=== PATIENT | female | born 1965 | race Two or more races ===

== ENCOUNTER 2025-03-12 22:43 | Emergency (ER) | payer OTHER, MEDICAID ==
[~2025-03-12] VITALS: Ht 152.4 cm; Wt 65.9 kg
--- NOTE | 2025-03-12 23:54 | DVH ---
COMPUTERIZED TOMOGRAPHY ABDOMEN AND PELVIS WITHOUT CONTRAST REASON FOR EXAM: abd pain n/v COMPARISON: None TECHNIQUE: Spiral scans were acquired from the diaphragm to the symphysis pubis without intravenous contrast administration. 2-D coronal and sagittal reformatted images were provided. Radiation optimization: All CT scans at this facility use at least one of these dose optimization techniques: Automated exposure control mA and/or kV adjustment per patient size (includes targeted exams where dose is matched to clinical indication) or iterative reconstruction. RADIATION DOSE: CTDI: 7 mGy DLP: 409 mGy-cm FINDINGS: The visualized lung bases are grossly clear. There is no pleural effusion. There is no pericardial effusion. There is a moderate-sized hiatal hernia. The spleen is not enlarged. The liver is borderline enlarged. The liver parenchyma is diffusely hypoattenuating. No focal liver lesion is identified. No calcified gallstone is identified. Evaluation of the abdominal organs is suboptimal in the absence of intravenous contrast. Unenhanced appearance of the pancreas is grossly unremarkable. The adrenal glands appear grossly normal. The kidneys are similar in size. There is no hydronephrosis of either kidney. There is no abdominal aortic aneurysm. No pathologic lymphadenopathy is identified by size criteria. No free fluid is identified in the abdomen or pelvis. The urinary bladder is decompressed and is not well evaluated on the current study. The uterus and ovaries are within normal limits for age. The colonic stool burden is small. The appendix is normal. There is no Pathologic distention of the small bowel. There are phleboliths in the pelvis. There is old healed fracture of the left 9th, 10th, and 11th ribs. No acute osseous abnormality is identified. IMPRESSION: Borderline hepatomegaly. The liver is diffusely hypoattenuating which may be secondary to steatosis or another diffuse hepatic process. Correlate clinically and with liver function tests.
[2025-03-12 23:58] LABS: Hematocrit 42.9 % (36.0-46.0); Hemoglobin 14.6 g/dL (12.2-16.2); Mean Corpuscular Hemoglobin 33.6 pg (28.0-32.0); Mean Corpuscular Volume 98.9 fL (80.0-100.0); Nucleated Red Blood Cells % 0.1 %
[2025-03-13 00:08] LABS: Alanine Aminotransferase 40 U/L (7-40); Albumin 4.3 g/dL (3.2-4.8); Anion Gap 15 (5-15); BUN/Creatinine Ratio 7.6 (10.0-20.0); Calcium 9.6 mg/dL (8.7-10.4); Carbon Dioxide 24 mmol/L (20-31); Chloride 102 mmol/L (98-107); Glucose 104 mg/dL (74-106); Lipase 26 U/L (12-53); Sodium 141 mmol/L (136-145); Total Protein 8.0 g/dL (5.7-8.2)
[2025-03-13 00:09] LABS: Bilirubin, Total 0.4 mg/dL (0.2-1.0)
[2025-03-13 00:14] LABS: Lactic Acid w/Reflex 2.4 mmol/L (0.4-2.0)
[2025-03-13 00:18] LABS: Alkaline Phosphatase 143 U/L (46-116); Blood Urea Nitrogen 7 mg/dL (9-23); Potassium 3.1 mmol/L (3.5-5.1)
--- NOTE | 2025-03-13 00:39 | ED.PDOC ---
GI ASSESSMENT HPI Comments 59-year-old female presents with chief complaint of nonradiating, umbilical abdominal pain, nausea, vomiting, blurry vision, and dizziness. Patient endorses on sudden, unprovoked, and atraumatic onset of symptoms, earlier, today. Pain is intermittent. She reports some vomiting 6 times, already. She denies having any bloody or bilious vomitus, diarrhea, constipation, urinary symptoms, or further acute symptoms. Past Medical History: Hypertension, history of aspirin use Past Surgical History: Denies EPHRIAM: ONE DAY HISTORY OF PERIUMBILICAL ABDOMINAL PAIN WITH NAUSEA AND VOMITING NONBILIOUS NONBLOODY HPI: Poor Historian. Past Medical History: Past Surgical History: REVIEW OF SYSTEMS: CONSTITUTIONAL: Denies acute: fever, diaphoresis, chills, HEAD: Denies acute: headache, photophobia Eyes: Denies acute: Double vision, vision loss, eye pain, eye discharge. EARS: Denies acute: tinnitus, hearing loss, ear discharge, ear pain, THROAT: Denies acute: sore throat, swelling, difficulty swallowing , pain with swallowing, change in voice. NECK: Denies acute: neck pain, neck swelling, stiff neck. HEART: Denies acute : chest pain, palpitations, LUNGS: Denies acute: SOB, wheezing, cough, hemoptysis ABDOMEN: Denies acute: diarrhea, melena , hematemesis, hematochezia SKIN: Denies acute: rash, redness, lesions, itchiness. EXTREMITIES: Denies acute: calf pain, numbness, tingling, weakness, denies pain in extremity. Denies acute: Low back pain. Neuro: Denies acute: focal neurological deficit, motor or sensory focal neurological deficit, tremors, seizure like activity, confusion, dizziness, change in mental status, loss of bowel or bladder function, cauda equina like symptoms. : Denies acute: dysuria, hematuria, flank pain, increase in urinary frequency. PSYCH: Denies acute: hallucination, suicidal ideation, homicidal ideation. FEMALE: Denies acute: abnormal vaginal bleeding, foul odor, unusual discharge. PHYSICAL EXAM: General: ----mild----acute distress, awake and alert. Head: normocephalic, atraumatic. No raccoon's eyes, no masterson sign. Neck: supple, trachea is midline, no swelling. Throat: Normal phonation. Eyes:, no erythema, no purulent discharge, no proptosis, no icterus. Heart: regular rate, regular rhythm, no significant murmur appreciated. Lungs: no apparent respiratory distress, Able to speak in full sentences. No wheezing, no rhonchi, no crackles. No stridors Clear to auscultation bilaterally. Abdomen: Periumbilical tender to palpation, non distended, soft, no guarding, no rebound, + bowel sounds. Neuro: Awake, Alert, oriented to name, self, situation, follows commands GCS=15. Speech is normal. Skin: no petechia, no purpura, no cyanosis, non-pale, not jaundice. Lower extremities: --no - Pitting edema no deformity, no focal swelling, no calf TTP. Makes eye contact. moves all four extremities. Face: no apparent facial droop. ED COURSE: DISCLAIMER: This medical document was created using an electronic medical record system with voice recognition software and computerized dictation system. Although this document has been carefully reviewed, there might still be some phonetic and typographical errors. Occasional wrong-word or "sound-alike" substitutions may have occurred due to the inherent limitations of voice recognition software. These areas are purely typographical due to imperfections of the software programs and do not reflect any compromise in the patient's medical care. Please read the chart carefully and recognize, using context, where these substitutions have occurred. Chief Complaint: Abdominal Pain Time Seen by MD: 00:20 Reviewed Notes: Allergies Allergies: Coded Allergies: NO KNOWN ALLERGIES (Unverified , 03/13/25) Information Source: Patient Mode of Arrival: EMS Was a procedure done? Was a procedure done?: No GI differential Dx Differential Diagnosis: Other (DDX include Diverticulitis, colitis, gastroenteritis, acute abdomen, SBO, enteritis, constipation, volvulus, appendicitis, Gallbladder disease, choledocolithiasis, ascending cholangitis, pancreatitis, intraAbdominal mass/neoplasm, hepatitis, UTI, pylonephritis, kidney stone, aneurysm, dissection, Inflammatory bowel disease, gastroparesis, ischemic bowel,,,,,,Food poisoning, bacterial/parasitic/viral etiology, trauma, diabetes DKA,ovarian torsion, ovarian cyst/mass, tubo-ovarian abscess, PID, STD.) X-Ray, Labs, Meds, VS Vital Signs Date Time Temp Pulse Resp B/P (MAP) Pulse Ox O2 Delivery O2 Flow Rate FiO2 03/13/25 04:26 98.9 70 18 148/97 (114) 97 98.9 03/13/25 02:41 98.9 69 16 148/131 (137) 99 98.9 03/12/25 22:53 98.7 66 18 174/87 97 98.7 Lab Test 03/13/25 01:45 03/12/25 23:34 03/12/25 22:58 Range/Units Lactic Acid Level 1.5 2.4 *H 0.4-2.0 mmol/L White Blood Count 5.4 4.4-10.8 10^3/uL Red Blood Count 4.34 4.0-5.20 10^6/uL Hemoglobin 14.6 12.2-16.2 g/dL Hematocrit 42.9 36.0-46.0 % Mean Corpuscular Volume 98.9 80.0-100.0 fL Mean Corpuscular Hemoglobin 33.6 H 28.0-32.0 pg Mean Corpuscular Hemoglobin Concent 34.0 32.0-36.0 g/dL Red Cell Distribution Width 13.8 11.8-14.3 % Platelet Count 238 140-450 10^3/uL Mean Platelet Volume 8.2 6.9-10.8 fL Neutrophils (%) (Auto) 73.7 37.0-80.0 % Lymphocytes (%) (Auto) 18.8 10.0-50.0 % Monocytes (%) (Auto) 5.2 0.0-12.0 % Eosinophils (%) (Auto) 1.3 0.0-7.0 % Basophils (%) (Auto) 1.0 0.0-2.0 % Neutrophils # (Auto) 4.0 1.6-8.6 10 ^3/uL Lymphocytes # (Auto) 1.0 0.4-5.4 10 ^3/uL Monocytes # (Auto) 0.3 0-1.3 10 ^3/uL Eosinophils # (Auto) 0.1 0-0.8 10 ^3/uL Basophils # (Auto) 0.1 0-0.2 10 ^3/uL Nucleated Red Blood Cells 0.1 % Sodium Level 141 136-145 mmol/L Potassium Level 3.1 L 3.5-5.1 mmol/L Chloride Level 102 98-107 mmol/L Carbon Dioxide Level 24 20-31 mmol/L Anion Gap 15 5-15 Blood Urea Nitrogen 7 L 9-23 mg/dL Creatinine 0.92 0.550-1.02 mg/dL Glomerular Filtration Rate Calc 72 >90 mL/min BUN/Creatinine Ratio 7.6 L 10.0-20.0 Serum Glucose 104 74-106 mg/dL Calcium Level 9.6 8.7-10.4 mg/dL Total Bilirubin 0.4 0.2-1.0 mg/dL Aspartate Amino Transferase (AST) 52 H 13-40 U/L Alanine Aminotransferase (ALT) 40 7-40 U/L Alkaline Phosphatase 143 H 46-116 U/L Troponin I High Sensitivity 8 </=34 ng/L Total Protein 8.0 5.7-8.2 g/dL Albumin 4.3 3.2-4.8 g/dL Lipase 26 12-53 U/L Plasma/Serum Blood Alcohol 65.6 H <10 mg/dL Urine Color Yellow Yellow Urine Clarity Clear Clear Urine pH 5.5 5.0-9.0 Urine Specific [place] 1.032 1.001-1.035 Urine Protein 1+ H Negative Urine Ketones 1+ H Negative Urine Blood Negative Negative /uL Urine Nitrite Negative Negative Urine Bilirubin Negative Negative Urine Urobilinogen 3 H Negative mg/dL Urine Leukocyte Esterase Negative Negative /uL Urine RBC None seen 0 - 4 /hpf Urine Microscopic WBC < 1 0-5 /HPF Urine Squamous Epithelial Cells Few <5 /hpf Urine Bacteria None seen None Seen /hpf Urine Mucus Few None Seen Urine Glucose Normal Normal mg/dL Current Medications Medications (Trade) Dose Ordered Sig/Haley Route Start Time Stop Time Status Last Admin Sodium Chloride 1,000 ml @ 1,000 mls/hr Q1H ONCE IV 03/13/25 00:30 03/13/25 03:57 DC 03/13/25 04:39 Ondansetron HCl (Zofran) 8 mg ONCE ONCE IV 03/13/25 00:30 03/13/25 03:57 DC 03/13/25 04:39 Potassium Chloride (Klor-Con Tablet) 40 meq ONCE ONCE PO 03/13/25 00:30 03/13/25 03:57 DC 03/13/25 04:38 Sucralfate (Carafate Tab) 1 gm ONCE ONCE PO 03/13/25 02:30 03/13/25 03:57 DC 03/13/25 04:38 Pantoprazole Sodium (Protonix Tablet) 40 mg ONCE ONCE PO 03/13/25 02:30 03/13/25 03:57 DC 03/13/25 04:38 Lidocaine HCl (Xylocaine 2% Viscous) 10 ml ONCE ONCE PO 03/13/25 02:30 03/13/25 03:57 DC 03/13/25 04:38 [place] [address] Ph: [phone] DIAGNOSTIC IMAGING Diagnostic Imaging Report : [id number] Signed PATIENT: BK CULP ACCT: [id number] UNIT: [id number] : 1965 LOC: ER ROOM / BED: / AGE / SEX: 59 / F ADM STATUS: REG ER SERVICE 57 ORDERING PHYSICIAN: DAVI ADRIAN DO PROCEDURE(s): ABPL - CT AB PEL WO CON-NO ORAL OR IV REASON: abd pain n/v ORDER NUMBER(s): [id number], ACCESSION NUMBER(s): [id number] COMPUTERIZED TOMOGRAPHY ABDOMEN AND PELVIS WITHOUT CONTRAST REASON FOR EXAM: abd pain n/v COMPARISON: None TECHNIQUE: Spiral scans were acquired from the diaphragm to the symphysis pubis without intravenous contrast administration. 2-D coronal and sagittal reformatted images were provided. Radiation optimization: All CT scans at this facility use at least one of these dose optimization techniques: Automated exposure control mA and/or kV adjustment per patient size (includes targeted exams where dose is matched to clinical indication) or iterative reconstruction. RADIATION DOSE: CTDI: 7 mGy DLP: 409 mGy-cm FINDINGS: The visualized lung bases are grossly clear. There is no pleural effusion. There is no pericardial effusion. There is a moderate-sized hiatal hernia. The spleen is not enlarged. The liver is borderline enlarged. The liver parenchyma is diffusely hypoattenuating. No focal liver lesion is identified. No calcified gallstone is identified. Evaluation of the abdominal organs is suboptimal in the absence of intravenous contrast. Unenhanced appearance of the pancreas is grossly unremarkable. The adrenal glands appear grossly normal. The kidneys are similar in size. There is no hydronephrosis of either kidney. There is no abdominal aortic aneurysm. No pathologic lymphadenopathy is identifi ed by size criteria. No free fluid is identified in the abdomen or pelvis. The urinary bladder is decompressed and is not well evaluated on the current study. The uterus and ovaries are within normal limits for age. The colonic stool burden is small. The appendix is normal. There is no Pathologic distention of the small bowel. There are phleboliths in the pelvis. There is old healed fracture of the left 9th, 10th, and 11th ribs. No acute osseous abnormality is identified. IMPRESSION: Borderline hepatomegaly. The liver is diffusely hypoattenuating which may be secondary to steatosis or another diffuse hepatic process. Correlate clinically and with liver function tests. ATED BY: DEMARCUS BUSH MD DICTATED DATE/TIME: 03/12/252351 SIGNED BY: DEMARCUS BUSH MD SIGNED DATE/TIME: 03/12/252351 CC: Time of 1ST Reevaluation: 00:20 Reevaluation 1ST: Unchanged Patient Education/Counseling: Diagnosis, Treatment Family Education/Counseling: No Family Present Comments MDM: patient presented with the above HPI.----abdominal pain GI symptoms--workup was initiated. patient was found with the above mentioned diagnosis. the following medications were ordered: please refer to order lists of meds and tests obtained by myself Dr. Adrian. Patient ED course and VS have been stabilized. Patient has been reassessed in the ED and remained in a stable condition. Pertinent incidental findings were discussed with the patient and/or family. Patient/family voices understanding and is agreeable with plan. Patient has been observed in the ED adequate length of time to insure improveme nt/stability. Escalation of care considered: Consideration of escalation to observation or admission Patient was DISCHARGED home in a stable condition. All the reports of any imaging studies that were ordered by myself were reviewed by myself. SEPSIS Sepsis Screen Date sepsis recognized/suspect: Mar 12, 2025 Time Sepsis recognized/suspect: 2250 Recent Procedure: No On Antibiotic Therapy: No Respiratory Rate >20: No Heart Rate >90: No Temp<36 C (96.8 F) or >38.3 C: No SBP <90 or MAP <65 mmHG: No New Acute Mental Status Change: No Is the patient on CPAP, BIPAP,: No Physician Orders Solid Waste Analyst (03/12/25 ) Electrocardigram (03/12/25 22:58) Ct Ab Pel Wo Con-No Oral Or Iv (03/12/25 22:58) Vital Signs Date Time Temp Pulse Resp B/P (MAP) Pulse Ox O2 Delivery O2 Flow Rate FiO2 03/13/25 04:26 98.9 70 18 148/97 (114) 97 98.9 03/13/25 02:41 98.9 69 16 148/131 (137) 99 98.9 03/12/25 22:53 98.7 66 18 174/87 97 98.7 Laboratory Tests Test 03/12/25 23:34 03/13/25 01:45 Lactic Acid Level 2.4 mmol/L (0.4-2.0) *H 1.5 mmol/L (0.4-2.0) White Blood Count 5.4 10^3/uL (4.4-10.8) Medications Medications Dose Ordered Sig/Haley Route Start Time Stop Time Status Last Admin Dose Admin Lidocaine HCl 10 ml ONCE ONCE PO 03/13/25 02:30 03/13/25 03:57 DC 03/13/25 04:38 Ondansetron HCl 8 mg ONCE ONCE IV 03/13/25 00:30 03/13/25 03:57 DC 03/13/25 04:39 Pantoprazole Sodium 40 mg ONCE ONCE PO 03/13/25 02:30 03/13/25 03:57 DC 03/13/25 04:38 Potassium Chloride 40 meq ONCE ONCE PO 03/13/25 00:30 03/13/25 03:57 DC 03/13/25 04:38 Sodium Chloride 1,000 ml @ 1,000 mls/hr Q1H ONCE IV 03/13/25 00:30 03/13/25 03:57 DC 03/13/25 04:39 Sucralfate 1 gm ONCE ONCE PO 03/13/25 02:30 03/13/25 03:57 DC 03/13/25 04:38 Departure 1 Departure Time of Disposition: 02:17 Impression: Primary Impression: Alcohol abuse Additional Impressions: Abdominal pain Nausea and vomiting Hypokalemia Disposition: 01 HOME / SELF CARE / HOMELESS Condition: Stable Additional Instructions: Additional instructions: Please read all instructions provided in this packet carefully. You MUST follow-up with your primary care/family doctor in 1 to 2 days. If you are unable to see your primary care/family doctor, please return to our emergency room for re-assessment and re-evaluation in 1 to 2 days. Return to the emergency room here in our facility or to the nearest ER [facility] if your symptoms change or worsen. CONSULTATIONS: you MUST Follow-up for consultation as soon as possible with: -gastroenterology in 1-2 days. Please call for appointment. You MUST call the consultants office yourself to make an appointment. You may need to arrange that through your insurance and/or your primary/family doctor. If you are unable to see the management consultant in 1 to 2 days, you must return to our emergency room (or any other ER of your choice) for re-assessment and re- evaluation. Adequate fluid hydration. Although you have been discharged from the Emergency Department, this does not mean that you have a "clean bill of health". No definitive diagnosis for your symptoms has been made today. It is possible that you are in the process of developing a serious illness. This is why you must return to the ED without fail if any new or worsening symptoms develop. Avoid fatty greasy spicy food. Avoid caffeinated products. Avoid NSAIDs. Av oid alcohol. Below is a copy of your radiological report for follow up: [place] [address] Ph: [phone] DIAGNOSTIC IMAGING Diagnostic Imaging Report : [id number] Signed PATIENT: BK CULP ACCT: [id number] UNIT: [id number] : 1965 LOC: ER ROOM / BED: / AGE / SEX: 59 / F ADM STATUS: REG ER SERVICE [id number] ORDERING PHYSICIAN: DAVI ADRIAN DO PROCEDURE(s): ABPL - CT AB PEL WO CON-NO ORAL OR IV REASON: abd pain n/v ORDER NUMBER(s): [id number], ACCESSION NUMBER(s): [id number] COMPUTERIZED TOMOGRAPHY ABDOMEN AND PELVIS WITHOUT CONTRAST REASON FOR EXAM: abd pain n/v COMPARISON: None TECHNIQUE: Spiral scans were acquired from the diaphragm to the symphysis pubis without intravenous contrast administration. 2-D coronal and sagittal reformatted images were provided. Radiation optimization: All CT scans at this facility use at least one of these dose optimization techniques: Automated exposure control mA and/or kV adjustment per patient size (includes targeted exams where dose is matched to clinical indication) or iterative reconstruction. RADIATION DOSE: CTDI: 7 mGy DLP: 409 mGy-cm FINDINGS: The visualized lung bases are grossly clear. There is no pleural effusion. There is no pericardial effusion. There is a moderate-sized hiatal hernia. The spleen is not enlarged. The liver is borderline enlarged. The liver parenchyma is diffusely hypoattenuating. No focal liver lesion is identified. No calcified gallstone is identified. Evaluation of the abdominal organs is suboptimal in the absence of intravenous contrast. Unenhanced appearance of the pancreas is grossly unremarkable. The adrenal glands appear grossly normal. The kidneys are similar in size. There is no hydronephrosis of either kidney. There is no abdominal aortic aneurysm. No pathologic lymphadenopathy is identified by size criteria. No free fluid is identified in the abdomen or pelvis. The urinary bladder is decompressed and is not well evaluated on the current study. The uterus and ovaries are within normal limits for age. The colonic stool burden is small. The appendix is normal. There is no Pathologic distention of the small bowel. There are phleboliths in the pelvis. There is old healed fracture of the left 9th, 10th, and 11th ribs. No acute osseous abnormality is identified. IMPRESSION: Borderline hepatomegaly. The liver is diffusely hypoattenuating which may be secondary to steatosis or another diffuse hepatic process. Correlate clinically and with liver function tests. ATED BY: DEMARCUS BUSH MD DICTATED DATE/TIME: 03/12/252351 SIGNED BY: DEMARCUS BUSH MD SIGNED DATE/TIME: 03/12/252351 CC: Discharged With: Self Critical Care Note Critical Care Time?: No I personally scribed for DAVI ADRIAN DO ([email or web address]) on 03/13/25 at 00:39. Electronically submitted by Nahum Samuel ([email or web address]). I personally scribed for DAVI ADRIAN DO ([email or web address]) on 03/13/25 at 02:19. Electronically submitted by Nahum Samuel [email or web address]). DAVI ADRIAN DO Mar 13, 2025 00:39
[2025-03-13 02:42] LABS: Urine Protein, UAD 1+ (Negative)
[2025-03-13 04:26] VITALS: BP 148/97; PULSE 70; RESP 18; TEMP 98.9; O2SAT 97
[2025-03-13] MEDS: SUCRALFATE 1 GM TAB PO ONE (04:38)
[2025-03-13] MEDS: LIDOCAINE VISCOUS 2% 15ML UD PO ONE (04:38)
[2025-03-13] MEDS: POTASSIUM CHL 20 Meq TABLET PO ONE (04:38)
[2025-03-13] MEDS: PANTOPRAZOLE 40 MG TAB PO ONE (04:38)
[2025-03-13] MEDS: SODIUM CHLORIDE 0.9% 1,000 ML IV ONE (04:39)
[2025-03-13] MEDS: ONDANSETRON HCL 4 MG/2 ML VIAL IV ONE (04:39)
== END 2025-03-13 03:05 | disposition home or self-care (01) ==
LOC: ER 22:43 → EDBD 22:43 → ER 23:59
DX: F10.10 Alcohol abuse, uncomplicated (principal); R11.2 Nausea with vomiting, unspecified; E87.6 Hypokalemia; I10 Essential (primary) hypertension; Z79.899 Other long term (current) drug therapy
CPT/HCPCS: 36415; 74176; 80053; 80320; 81001; 82947; 83605; 83690; 84484; 85025; 96361; 96374; 99285; J2405; J7030